=== PATIENT | female | born 1960 | race Caucasian/White ===

== ENCOUNTER 2024-06-21 13:08 | Emergency (ER) | payer SELFPAY ==
[2024-06-21 13:12] VITALS: BP 168/108
[2024-06-21 13:43] LABS: % Basophils 0.7 % (0-2); % Eosinophils 1.1 % (0-6); % Immature Granulocytes 0.4 % (0-0.5); % Lymphocytes 27.8 % (20.5-51.1); % Monocytes 6.7 % (1.7-9.3); % Neutrophils 63.3 % (42.2-75.2); Absolute Basophils 0.1 10^3/uL (0-0.2); Absolute Eosinophils 0.1 10^3/uL (0-0.7); Absolute Lymphocytes 2.3 10^3/uL (1.2-3.4); Absolute Monocytes 0.6 10^3/uL (0.1-0.6); Absolute Neutrophils 5.2 10^3/uL (1.4-6.5); Hematocrit 44.1 % (37.0-47.0); Hemoglobin 14.7 g/dL (12.0-16.0); Mean Corp Hgb Conc. 33.3 g/dL (33.0-37.0); Mean Corpuscular Hgb 30.2 pg (27.0-31.0); Mean Corpuscular Volume 90.6 fL (81.0-99.0); Nucleated Red Blood Cells % 0 %; Platelet Count 354 10^3/uL (130-400); Red Blood Cell Count 4.87 10^6/uL (4.20-5.40); Red Cell Dist. Width 13.3 % (11.5-14.5); White Blood Cell Count 8.2 10^3/uL (4.8-10.8)
[2024-06-21 13:58] LABS: ALT (SGPT) 26 U/L (0-35); AST (SGOT) 26 U/L (14-36); Alkaline Phosphatase 96 U/L (38-126); Blood Urea Nitrogen 14 mg/dl (7-17); Carbon Dioxide 25 mmol/L (22-30); Chloride 102 mmol/L (98-107); Glucose 116 mg/dl (70-99); Potassium 4.6 mmol/L (3.5-5.1); Sodium 142 mmol/L (135-145); Total Bilirubin 0.4 mg/dl (0.2-1.3); Total Protein 7.9 g/dl (6.3-8.2); eGFR > 60.00
[2024-06-21 14:15] LABS: Urine Albumin Trace (Neg - Trace); Urine Bilirubin 1+ (Negative); Urine Character Clear (Clear); Urine Color Yellow; Urine Glucose Negative (Negative); Urine Ketone Negative (Negative); Urine Leukocyte Trace (Negative); Urine Nitrite Negative (Negative); Urine Occult Blood Trace (Negative); Urine Urobilinogen 1+ (Neg - 1+)
[2024-06-21 15:08] LABS: Urine Amorphous Seen; Urine Squamous Cell >30 /LPF (Few)
[2024-06-21 15:10] LABS: Urine Red Blood Cell 0-2 /HPF (0-2)
--- NOTE | 2024-06-21 15:54 | ED.GENMED ---
History of Present Illness
<Lizzy Hare PA-C - Last Filed: 06/21/24 19:18>
General
Chief Complaint: Urinary Symptoms
Source: patient
Exam Limitations: none
Time Seen by Provider: 06/21/24 15:54
Nursing documentation reviewed up to this point in time: agreed with
History of Present Illness
History of Present Illness:
63-year-old female with a past medical history of cauda equina syndrome status post spinal surgery presents emergency department today with concerns of intermittent gross hematuria for the past month. Patient reports that when this first started,
she had associated dysuria and was started on Macrobid. She did not have a urinalysis at this time, this was diagnosed clinically via telehealth appointment. Patient reports that her symptoms and hematuria resolved but then eventually came back
and she saw a telehealth again and they started her on Bactrim. Patient finished both courses of antibiotics fully and notes that the symptoms still returned. Patient denies any dysuria or pelvic pain at this point and just notes the gross
hematuria. She has never had this before, she denies flank pain although she notes that with her history of cauda equina she does have decree sensation throughout her abdomen and lower extremities and states that she cannot feel pain in his areas
as well. Patient denies any fevers or chills, any nausea or vomiting. Patient denies any history of trauma
Review of Systems
<Lizzy Hare PA-C - Last Filed: 06/21/24 19:18>
Review of Systems
All Other Systems: ROS reviewed and negative except as documented in HPI and ROS
Phy Exam
<Lizzy Hare PA-C - Last Filed: 06/21/24 19:18>
Physical Exam
Physical Exam:
General: Patient is well appearing and in no acute distress; non-toxic
Skin: Warm and dry, no rashes or lesions
Head: Normocephalic, atraumatic
Eyes: Sclera non-icteric. EOMs intact. PERRLA.
Cardiac: Regular rate and rhythm, no murmurs
Peripheral Vascular: No lower extremity swelling or edema
Pulm: Normal respiratory effort
Abdomen: No abdominal tenderness to palpation, no palpable masses
Neuro: CN II-XII intact, no focal neurologic deficits.
Psychiatric: Appropriate mood and affect.
Course
<Lizzy Hare PA-C - Last Filed: 06/21/24 19:18>
Orders/Labs/Results
Orders:
Orders
06/21/24 13:30
CMP [Comprehensive Metabolic Panel] Urgent
Complete Blood Count/With Diff Urgent
Urinalysis Reflex To Culture Urgent
Date Specimen was Collected: 06/21/24
Time Specimen was Collected: 13:18
Urine Microscopic Reflex Cult Urgent
06/21/24 16:16
CT Abd/pelvis W Iv Cont Urgent
Comment:
Reason For Exam: gross hematuria, intermitent low back pain
06/21/24 17:55
Acetaminophen [Tylenol] 650 mg PO NOW STA
Abnormal Lab Results
06/21/24
13:30
Glucose 116 H mg/dl
(70-99)
Ur Occult Blood Reflex Trace A
(Negative)
Urine Bilirubin 1+ A
(Negative)
Leukocyte Esterase Rfl Trace A
(Negative)
06/21/24 13:30
06/21/24 13:30
Vital Signs
Initial and Last Documented VS:
Initial Vital Signs
Temp Pulse Resp BP Pulse Ox
36.9 C 108 16 168/108 97
06/21/24 13:12 06/21/24 13:12 06/21/24 13:12 06/21/24 13:12 06/21/24 13:12
Last Documented Vital Signs
Temp Pulse Resp BP Pulse Ox
36.9 C 86 15 168/108 93
06/21/24 13:12 06/21/24 17:15 06/21/24 17:15 06/21/24 13:12 06/21/24 17:15
<Reinaldo James MD - Last Filed: 06/21/24 19:52>
Orders/Labs/Results
Orders:
Orders
06/21/24 13:30
CMP [Comprehensive Metabolic Panel] Urgent
Complete Blood Count/With Diff Urgent
Urinalysis Reflex To Culture Urgent
Date Specimen was Collected: 06/21/24
Time Specimen was Collected: 13:18
Urine Microscopic Reflex Cult Urgent
06/21/24 16:16
CT Abd/pelvis W Iv Cont Urgent
Comment:
Reason For Exam: gross hematuria, intermitent low back pain
06/21/24 17:55
Acetaminophen [Tylenol] 650 mg PO NOW STA
Abnormal Lab Results
06/21/24
13:30
Glucose 116 H mg/dl
(70-99)
Ur Occult Blood Reflex Trace A
(Negative)
Urine Bilirubin 1+ A
(Negative)
Leukocyte Esterase Rfl Trace A
(Negative)
06/21/24 13:30
06/21/24 13:30
Vital Signs
Initial and Last Documented VS:
Initial Vital Signs
Temp Pulse Resp BP Pulse Ox
36.9 C 108 16 168/108 97
06/21/24 13:12 06/21/24 13:12 06/21/24 13:12 06/21/24 13:12 06/21/24 13:12
Last Documented Vital Signs
Temp Pulse Resp BP Pulse Ox
36.9 C 86 15 168/108 93
06/21/24 13:12 06/21/24 17:15 06/21/24 17:15 06/21/24 13:12 06/21/24 17:15
<Lizzy Hare PA-C - Last Filed: 06/21/24 19:18>
MDM/Problems Addressed
Differential Diagnosis Includes:
Differentials include interstitial cystitis, acute cystitis, bladder calculus, renal calculi, cystic kidney disease, loin pain hematuria syndrome
MDM/Problems Addressed:
63-year-old female presents emergency department today with concerns of gross hematuria. Initial urinalysis does not show any evidence of infection. Will send for CAT scan for further evaluation.
CT scan reveals bilateral renal cysts with no evidence of acute process in the abdomen and pelvis. Discussed findings with patient. Discussed urology follow up. Patient stable for discharge.
Chronic conditions affecting care:
hx of cauda equina
<Lizzy Hare PA-C - Last Filed: 06/21/24 19:18>
*Pulse Oximetry
Patient hypoxic: no
*Critical Care Note
Total Time (30-74mins, 75-104mins- exclusive of procedures): Not Applicable
Data Reviewed
Review of Other/Old Records Reveals: Records (No previous ER physician documentation to review ) and Discharge Summary ([facility] )
Source: patient and records
<Lizzy Hare PA-C - Last Filed: 06/21/24 19:18>
Patient Management
Escalation/DeEscalation of care consider admission/obs:
Admit not indicated, patient stable for discharge
Case reviewed with my attending
ED Attending Note
<Lizzy Hare PA-C - Last Filed: 06/21/24 19:18>
-
Portions of this chart may have been created with voice recognition software.� Occasional wrong word or��sound alike� substitutions may have occurred due to the inherent limitations of voice recognition software.
<Reinaldo James MD - Last Filed: 06/21/24 19:52>
ED Attending Note
Patient seen and examined by attending physician: Yes
ED Attending Note:
I have seen and evaluated the patient with a [id number] encounter. I have spoken to the advance practicer provider and involved in the medical history, the physical exam, medical decision making.
Evaluation and management service: agree unless noted differently below.
Results interpretation: agree unless noted differently below.
Focused HPI: 63-year-old female with history as documented presents to the ER for evaluation of hematuria. Patient reports that she started having hematuria a few weeks ago and was prescribed an antibiotic; she says she had transient improvement
but hematuria returned and she was given a second course of antibiotics (she cannot recall the name of the first antibiotic but says that she was on Bactrim x 10 days for the second course which she finished a few days ago). She says that after
second course of antibiotics hematuria had improved but over the past day or 2 she noticed increasing hematuria once again. Came back to the emergency room for evaluation. Denies fever or chills. She has history of cauda equina syndrome and
sensory deficit in the lower abdomen and so she denies any abdominal pain but says this is not unusual when she has a UTI.
Physical exam: Hypertensive, tachycardic in triage�improved by my assessment. Rest of vitals normal. Abdomen nontender, no palpable mass.
Medical Decision Makin-year-old female presents for evaluation of hematuria for the past few weeks�has had 2 treatments with antibiotics and had transient improvement but symptoms keep returning. Labs sent off including a CBC and a CMP which
were unremarkable�renal function is normal. Her urinalysis shows only trace blood and not convincingly infected�no bacteria and only 3-5 whites with many squamous cells suggesting contamination. CT abdomen pelvis shows renal cyst but no other
acute pathology. She is not retaining urine, no clear indication for admission and I would hold off on additional antibiotics with 2 prolonged treatments already unsuccessful at resolving symptoms and essentially bland urinalysis today. Will refer
to urology for further follow-up. Encourage p.o. fluids. All questions answered.
Discharge Plan
Departure
Patient Disposition: Home (Routine Discharge)
Date of Disposition: 06/21/24
Time of Disposition: 18:46
Patient with high blood pressure during this ER visit?: Yes
Condition: Good
Discharge Problem:
Gross hematuria
Instructions: Blood in the Urine (Hematuria), Adult (DC), BLOOD PRESSURE
Referrals:
NONE,* [Family Provider] -
Nelson Del Cid MD [Active] - Call in 1-3 days for appt
Activity Restrictions/Additional Instructions:
Please return to the emergency department should you experience chest pain, shortness of breath, persistent fevers and chills, pelvic pain, numbness or tingling in the genital region, urinary incontinence, or any other signs or symptoms worrisome to
you.
Please call the attached number to schedule appointment with urology.
Please follow-up with your primary care provider as needed.
Interventions
Interventions:
*Risk Screen - Suicide Last Done: 06/21/24 13:12
*General Assessment Last Done: 06/21/24 13:12
*Neglect/Abuse Screening Last Done: 06/21/24 13:12
ED- Fall Risk Assessment Last Done: 06/21/24 17:01
*ED COVID-19 Vaccine History Last Done: 06/21/24 13:12
ED-Female Genitourinary Assessment Last Done: 06/21/24 17:01
Discharge Date and Time
Print Language: YI
[2024-06-21 17:00] VITALS: BMI 34.4
[2024-06-21] MEDS: TYLENOL 650 MG PO (18:03)
[2024-06-21 20:33] VITALS: BP 149/79
== END 2024-06-21 20:35 | disposition home or self-care (01) ==
LOC: EMR 13:08
PROVIDERS: Emergency Medicine; EMERGENCY PHYSICIAN Emergency Medicine
DX: R31.0 Gross hematuria (principal); G83.4 Cauda equina syndrome
CPT/HCPCS: 99284; 74177; 80053; 81003; 81015; 85025; Q9967